=== PATIENT | male | born 1995 | race American Indian/Alaskan Native ===

== ENCOUNTER 2018-03-07 16:35 | Emergency (ER) | payer SELFPAY ==
[2018-03-07 16:52] VITALS: BP 135/86; PULSE 84; RESP 18; TEMP 98; O2SAT 99
[2018-03-07] MEDS ORDERED: Tdap Vaccine 0.5 ml Vial (10-64 yrs) IM ONE (19:20)
--- NOTE | 2018-03-07 19:39 | ED PDOC ---
HPI: General Adult Time Seen by Provider: 03/07/18 18:05 Chief Complaint (Nursing): Medical Clearance Chief Complaint (Provider): Medical Clearance History Per: Patient History/Exam Limitations: no limitations Additional Complaint(s): 22 y/o male was brought to the ED by police for medical and psychiatric clearance. Patient was arrested when he was stealing a bike. He fell and sustained sustained abrasion on occipital scalp. Denies loss of consciousness, headache, vomiting or any further medical complaints. Past Medical History Reviewed: Historical Data, Nursing Documentation, Vital Signs Vital Signs: Last Vital Signs Temp 98 F 03/07/18 16:50 Pulse 84 03/07/18 16:50 Resp 18 03/07/18 16:50 BP 135/86 03/07/18 16:50 Pulse Ox 99 03/08/18 04:41 - Medical History PMH: No Chronic Diseases - Surgical History Surgical History: No Surg Hx - Family History Family History: States: Unknown Family Hx - Social History Current smoker - smoking cessation education provided: No (Unknown If Ever Smoked) Ex-Smoker (has not smoked in the last 12 months): No Alcohol: None - Allergies Allergies/Adverse Reactions: Allergies Allergy/AdvReac Type Severity Reaction Status Date / Time No Known Allergies Allergy Verified 03/07/18 16:49 Review of Systems ROS Statement: Except As Marked, All Systems Reviewed And Found Negative (As per HPI, otherwise negative) Gastrointestinal: Negative for: Vomiting Neurological: Negative for: Headache, Other (loss of consciusness) Psych: Positive for: Other (Medical and psychiatric clearance) Physical Exam - Reviewed Nursing Documentation Reviewed: Yes Vital Signs Reviewed: Yes - Physical Exam Appears: Positive for: Non-toxic, No Acute Distress Head Exam: Positive for: ATRAUMATIC, NORMAL INSPECTION (1cm supeprficial laceration noted; no hematoma), NORMOCEPHALIC Skin: Positive for: Normal Color, Warm, Dry Eye Exam: Positive for: EOMI, Normal appearance, PERRL ENT: Positive for: Normal ENT Inspection Neck: Positive for: Normal, Painless ROM, Supple Cardiovascular/Chest: Positive for: Regular Rate, Rhythm. Negative for: Murmur Respiratory: Positive for: Normal Breath Sounds. Negative for: Accessory Muscle Use, Respiratory Distress Gastrointestinal/Abdominal: Positive for: Normal Exam, Soft. Negative for: Tenderness Back: Positive for: Normal Inspection Extremity: Positive for: Normal ROM. Negative for: Deformity Neurologic/Psych: Positive for: Alert, Oriented (x3), Gait (steady) - ECG O2 Sat by Pulse Oximetry: 99 (RA) Pulse Ox Interpretation: Normal Medical Decision Making Medical Decision Making: Time: 19:05 Initial Impression: Medical and psychiatric evaluation Plan: Alcohol Serum Drug screen Crisis evaluation Tetanus 0.5ml IM Reevaluation Scribe Attestation: Documented by Donovan Hernandez acting as a scribe for Jenny Swan MD. Scribe Attestation: All medical record entries made by the Scribe were at my direction and personally dictated by me. I have reviewed the chart and agree that the record accurately reflects my personal performance of the history, physical exam, medical decision making, and the department course for this patient. I have also personally directed, reviewed, and agree with the discharge instructions and disposition. Disposition - Clinical Impression Clinical Impression: Cannabis abuse, Adjustment disorder, Scalp abrasion - Patient ED Disposition Is Patient to be Admitted: Transfer of Care Counseled Patient/Family Regarding: Studies Performed, Diagnosis - Disposition Disposition: Transfer of Care Disposition Time: 19:00 Condition: STABLE Additional Instructions: Patient is medically and psychiatrically stable for incarceration Instructions: Adjustment Disorder, Marijuana Use and Addiction Patient Signed Over To: Balbir Miranda
[2018-03-07 21:01] LABS: BARBITURATES, UR NEGATIVE (NEGATIVE); BENZODIAZEPINES, UR NEGATIVE (NEGATIVE); PHENCYCLIDINE, UR NEGATIVE (NEGATIVE)
[2018-03-07 21:17] LABS: OPIATES, UR NEGATIVE (NEGATIVE)
--- NOTE | 2018-03-07 21:29 | ED PDOC ---
- ECG O2 Sat by Pulse Oximetry: 99 (RA) Medical Decision Making Medical Decision Making: Time: 19:00 Patient is signed over to me by Dr. Jenny Swan pending labs, crisis evaluation and reevaluation. Time: 20:50 --Labs reviewed and alcohol is not detectable --UOS is positive for marijuana --Patient evaluated by crisis and is stable for discharge. Clinical Impression: Cannabis abuse, adjustment disorder, scalp abrasion Scribe Attestation: Documented by Donovan Hernandez acting as a scribe for Balbir Miranda MD. Scribe Attestation: All medical record entries made by the Scribe were at my direction and personally dictated by me. I have reviewed the chart and agree that the record accurately reflects my personal performance of the history, physical exam, medical decision making, and the department course for this patient. I have also personally directed, reviewed, and agree with the discharge instructions and disposition. Disposition - Clinical Impression Clinical Impression: Cannabis abuse, Adjustment disorder, Scalp abrasion - POA Present On Arrival: None - Disposition Disposition: Discharged/Transfer to Law Enforcement Disposition Time: 20:50 Condition: STABLE Additional Instructions: Patient is medically and psychiatrically stable for incarceration Instructions: Adjustment Disorder, Marijuana Use and Addiction Forms: Marketing Munch (Cam[place]onian)
== END 2018-03-07 21:20 ==
LOC: H.ER 16:35
DX: S00.01XA Abrasion of scalp, initial encounter (principal); W19.XXXA Unspecified fall, initial encounter; Y92.410 Unspecified street and highway as the place of occurrence of the external cause; F12.10 Cannabis abuse, uncomplicated; F43.20 Adjustment disorder, unspecified
CPT/HCPCS: 90471; 90715; 99283; G0480